=== PATIENT | male | born 1965 | race Caucasian/White ===

== ENCOUNTER 2017-12-23 06:03 | Emergency (ER) | payer OTHER ==
[~2017-12-23] VITALS: Ht 185.4 cm; Wt 86.6 kg
[~2017-12-23 06:03] MED LIST: ASPIRIN EC81 M1 PO; ATIVAN1 M1 PO; CIALIS5 M1 PO; CYCLOBENZAPRINE5 M2 PO; ELOCON15 GM TOP; HYDROXYZINE PAM50 M1 PO; IBUPROFEN600 M1 PO; LIDODERM1 EACH TOP; MEDROL4 M2 PO; MULTIVITAMINS1 EAC9 PO; NORCO 5-325 TA1 EACH PO; OXYCODONE HCL5 M1 PO; PANTOPRAZOLE SO40 M1 PO; PERCOCET 5-3251 EACH PO; PERMETHRIN60 GM TOP; PIOGLITAZONE HC15 MG PO; POLYTRIM EYE DR10 ML OPH; PREDNISONE50 M1 PO; SERTRALINE HCL50 MG PO; VALIUM5 M2 PO; VITAMIN D2000 UNIT PO
--- NOTE | 2017-12-23 06:29 | ED NECK/BACK PAIN COMPLAINT ---
History of Present Illness General Chief Complaint: General Adult Stated Complaint: "NECK STIFF/PAIN AND LT ARM PAIN/NUMBNESS" Source: patient, old records Exam Limitations: no limitations Vital Signs & Intake/Output Vital Signs & Intake/Output Vital Signs Date Time Temp Pulse Resp B/P B/P Pulse O2 O2 Flow FiO2 Mean Ox Delivery Rate 12/23 821 97.6 65 18 123/74 98 Room Air 12/23 0650 125/76 12/23 0614 98.6 96 18 159/47 96 Room Air Allergies Coded Allergies: Penicillins (DIFFICULTY BREATHING 12/18/16) prochlorperazine (From COMPAZINE) (FACE PARALYSIS 12/18/16) Reconcile Medications Aspirin (Ecotrin*) 81 MG TABLET.DR 1 TAB PO DAILY HEART/BLOOD (Reported) Cholecalciferol (Vitamin D3) (Vitamin D) 2,000 UNIT CAPSULE 1 CAP PO DAILY SUPPLEMENT (Reported) Cyclobenzaprine HCl 10 MG TABLET 1 TAB PO Q8P PAIN OR SPASM Ibuprofen 600 MG TABLET 1 TAB PO TID PRN PAIN with food Multiple Vitamin (Multivitamins) 1 EACH TABLET 1 TAB PO DAILY SUPPLEMENT ( Reported) Oxycodone HCl/Acetaminophen (Percocet 5-325 MG Tablet) 5 MG-325 MG TABLET 1-2 TAB PO Q6P PRN pain Oxycodone HCl/Acetaminophen (Percocet 5-325 MG Tablet) 5 MG-325 MG TABLET 1 TAB PO 4XDP PRN PAIN TEN...[id number] Pantoprazole Sodium 40 MG TABLET.DR 1 TAB PO BID GI (Reported) Pioglitazone HCl 15 MG TABLET 1 TAB PO DAILY DM (Reported) Polytrim (Polytrim Eye Drops) 10,000 UNIT-1 MG/ML DROPS 1 GTT OPH Q6 scleral laceration Sertraline HCl 50 MG TABLET 1 TAB PO DAILY MENTAL HEALTH (Reported) Tadalafil (Cialis) 5 MG TABLET 1 TAB PO DAILY ED (Reported) Triage Note: SEE [facility] NOTES Triage Nurses Notes Reviewed? yes HPI: Patient presents with neck pain that started 5 days ago. Patient states he woke up one morning with the pain. Patient is in the process of moving into a new house. The pain is constant and increases with movement. The pain radiates up and impacted his head and then down his left arm. He denies any weakness however this morning when he got up his left hand felt numb however that has subsequently resolved. There is no incontinence of bowel or bladder. The pain is aching and tight in nature. The pain is 10 out of 10. (Della ROMAN,Rufino Robins) Past History Travel History Traveled to [place] past 21 day No Medical History Any Pertinent Medical History? see below for history Neurological: NONE EENT: NONE Cardiovascular: NONE Respiratory: NONE Gastrointestinal: DIVERTICULITIS Hepatic: NONE Renal: NONE Musculoskeletal: chronic back pain Psychiatric: NONE Endocrine: diabetes Blood Disorders: NONE Cancer(s): NONE FIELD CHECKER/Reproductive: NONE Surgical History Surgical History: none Psychosocial History What is your primary language [place] Tobacco Use: Quit >30 days ago ETOH Use: denies use Illicit Drug Use: denies illicit drug use Family History Hx Contributory? No (Della ROMAN,Rufino Robins) Review of Systems Review of Systems Constitutional: Reports: no symptoms. Ears, Nose, Throat, Mouth: Reports: no symptoms. Respiratory: Reports: no symptoms. Cardiovascular: Reports: no symptoms. Musculoskeletal: Reports: see HPI, neck pain. Neurological/Psychological: Reports: see HPI. (Della ROMAN,Rufino Robins) Physical Exam Physical Exam General Appearance: well developed/nourished, alert, awake, anxious, moderate distress Head: atraumatic, normal appearance Eyes: Bilateral: PERRL, EOMI. Neck: muscle spasm, pain, stiff neck, tender lateral, no midline tenderness Respiratory: normal breath sounds, chest non-tender, no respiratory distress, lungs clear Cardiovascular: regular rate/rhythm, normal peripheral pulses Gastrointestinal: normal bowel sounds, soft, non-tender, no organomegaly Back: normal inspection, normal range of motion Extremities: non-tender, normal range of motion Neurologic/Psych: no motor/sensory deficits, awake, alert, oriented x 3, normal gait, normal mood/affect Core Measures CVA/TIA Diagnosis: No (Della ROMAN,Rufino Robins) Progress Differential Diagnosis: herniated disc, myofascial strain Plan of Care: Orders Procedure Date/time Status XRY-CERV SPINE 4 OR 5 VIEWS 12/23 0632 Active Diagnostic Imaging: Viewed by Me: Radiology Read. Discussed w/RAD: Radiology Read. Hand-Off Endorsed To: Maximo Melgar DO Endorsed Time: 0700 Pending: other (RE-EVAL) (Rufino Hull MD) Departure Departure Disposition: HOME OR SELF CARE Condition: Stable Clinical Impression Primary Impression: Torticollis Referrals: Travis ROMAN,Rufino Tapia (PCP/Family) Additional Instructions: Use moist heat. Take medications as needed. Flexeril is sedating so do not drive after taking it. Return if symptoms worsen for any concerns. Departure Forms: Customer Survey General Discharge Information Prescriptions: Current Visit Scripts Cyclobenzaprine HCl 1 TAB PO Q8P #20 TAB Ibuprofen 1 TAB PO TID PRN PAIN #20 TAB with food (Della ROMAN,Rufino Robins) Departure Comments 12/23/17 9 AM Patient was signed out to me by Dr. Hull. X-ray reveals severe arthritis. He will take pain medication and follow-up with his doctor this week. 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 (Maximo Melgar DO.)
[2017-12-23] MEDS ORDERED: IBUPROFEN600 M1 PO (06:37)
[2017-12-23] MEDS ORDERED: CYCLOBENZAPRINE10 M1 PO (06:37)
--- NOTE | 2017-12-23 07:17 | RADIOLOGY REPORT ---
EXAMINATION: XR CERVICAL SPINE CLINICAL INFORMATION: Pain COMPARISON: 10/24/2016 TECHNIQUE: 5 views of the cervical spine. FINDINGS: There is grade 1 anterolisthesis of C4 on C5 and grade 1 retrolisthesis of C5 on C6, similar to 10/24/2016. There is moderate disc space narrowing at C5-C6 and C6-C7. There are endplate osteophytes of the mid to lower cervical spine. Degenerative changes appear similar to slightly worsened compared to prior. No acute fracture is seen. Assessment for bony foraminal narrowing is limited due to patient positioning. No significant prevertebral soft tissue swelling. IMPRESSION: Chronic/degenerative changes of the mid to lower cervical spine as described above. Appearance is similar to slightly worsened from 10/24/2016.
[2017-12-23 08:22] VITALS: BP 123/74
[2017-12-23] MEDS ORDERED: PERCOCET 5-3251 EACH PO (09:06)
== END 2017-12-23 08:53 ==
LOC: ERH 06:03
DX: M43.6 Torticollis (principal); Z87.891 Personal history of nicotine dependence
CPT/HCPCS: 72050; 96372; J1885